=== PATIENT | female | born 1950 | race Caucasian/White ===

== ENCOUNTER → 2017-01-18 | Outpatient (CLI) | payer MEDICARE, OTHER ==
--- NOTE | 2017-01-19 09:54 | MM ---
Reason for exam: screening (asymptomatic). Last mammogram was performed 1 year and 4 months ago. History: Patient is postmenopausal. Took hormonal contraceptives for 1 year beginning at age 20. Took estrogen for 2 years beginning at age 54. Took progesterone for 2 years beginning at age 54. Physical Findings: A clinical breast exam by your physician is recommended on an annual basis and results should be correlated with mammographic findings. MG 3D Screening Mammo W/Cad Bilateral CC and MLO view(s) were taken. Prior study comparison: September 19, 2015, bilateral MG screening mammo w CAD. October 17, 2013, bilateral digital screening mammo w/CAD. There are scattered fibroglandular densities. There is no discrete abnormality. No significant changes when compared with prior studies. ASSESSMENT: Negative, BI-RAD 1 RECOMMENDATION: Routine screening mammogram of both breasts in 1 year.
== END | disposition home or self-care (01) ==
LOC: RADMAMWWP 07:17
PROVIDERS: ATTEND Family Medicine
DX: Z12.31 Encounter for screening mammogram for malignant neoplasm of breast (principal)
CPT/HCPCS: 77063; G0202

== ENCOUNTER 2017-11-02 11:12 | Day surgery (SDC) | payer MEDICARE, OTHER ==
[2017-10-25 14:04] VITALS: BMI 25.7
[~2017-11-02 11:12] MED LIST: LACTATED RINGERS 1,000 ML IV SCH; TIMOLOL 0.5% OPHTH DROPS 5 ML BTL ONE
[2017-11-02] MEDS: CYCLOPENTOLATE 1% OPHTH SOLN 2 ML BTL OP ONE ×3 (12:30→12:46)
[2017-11-02] MEDS: FLURBIPROFEN 0.03% OPHTH DROPS 2.5 ML BTL OP ONE ×3 (12:33→12:49)
[2017-11-02 12:35] VITALS: TEMP 98
[2017-11-02] MEDS: PHENYLEPHRINE 10% OPHTH DROPS 5 ML BTL OP ONE ×3 (12:36→12:51)
[2017-11-02] MEDS ORDERED: LIDOCAINE 1% 20 ML VIAL (10MG/ML) FOR IV START INTRADERMA ONE (12:45)
[2017-11-02] MEDS ORDERED: PROPOFOL 10 MG/ML 20 ML VIAL IV ONE (13:09)
[2017-11-02] MEDS ORDERED: EPINEPHrine (PF) 0.5 ML in BALANCED SALT IRRIG SOLN COMB2 500 ML IRRIGATION ONE (13:16)
[2017-11-02] MEDS ORDERED: BALANCED SALT IRRIG SOLN COMB2 15 ML IRRIG.SOLN INTRAOCULA ONE (13:20)
[2017-11-02] MEDS ORDERED: HYALURONATE SODIUM INTRAOCULAR 1 EACH SYRINGE (10MG/ML) INTRAOCULA ONE ×2 (13:20)
--- NOTE | 2017-11-02 13:38 | P.OP ---
Date of Procedure: 11/02/17 Procedure(s) Performed: PREOPERATIVE DIAGNOSIS: Cataract and Glaucoma, Right eye. POSTOPERATIVE DIAGNOSIS: Cataract and Glaucoma, Right eye. OPERATION: Phacoemulsification cataract, Lens placement, I-stent placement, right eye. DESCRIPTION OF PROCEDURE: The patient was taken to the preoperative holding area. Intravenous Propofol was given so as to bring about adequate sedation. The following mixture was given for local anesthesia: 5 mL of 2% lidocaine, 5 mL of 0.75% Marcaine, and 1 mL of Wydase. Approximately 4 mL was injected in the retrobulbar space of the surgical eye. Additional 1 mL was then directed to the temporal area of the surgical eye. This was performed to allow adequate neurological block of the facial muscles. The patient was revived and then taken into the operative room. The patient was prepped and draped in the usual sterile manner for the operative eye. A lid speculum was put into position. The conjunctiva was resected back from the limbus in the 12 o'clock position. Bleeding was controlled with electrocautery. A #69 blade was then used and a half-thickness scleral incision approximately 1-mm posterior to the limbus was made on bare sclera. This was shelved in the clear cornea using a crescent knife. Next a 15-degree blade was used to make a stab incision at the 3 o' clock position at the corneolimbal interface. Keratome blade was then used and the superior wound was extended into the anterior chamber. Viscoelastic was injected into the anterior chamber and to maintain its form. Using a hand held gonioprism for guidance, an I-stent was placed into the inferior Schlemm's canal. Next, a cystotome was used and a continuous anterior capsulotomy was made without difficulty. Hydrodissection using a blunt cannula and BSS was performed. Phaco probe was then employed and a groove extending from 12 to 6 o' clock in the lens was created. A Michael wand was used through the stab incision so as to perform a divide and conquer technique. Next an irrigation aspiration probe was utilized and any residual cortex was removed from the eye. Again, viscoelastic was injected into the anterior chamber. An German Restor 2.5 posterior chamber lens implant was placed in the cartridge and injected into the anterior chamber without difficulty. The Sinskey hook was utilized to spin the lens into position and this was again performed without any difficulty. The irrigation and aspiration probe was again employed and any residual viscoelastic was removed from the eye. Then BSS was injected into the limbal stab incision and the anterior chamber re-inflated. The conjunctiva was reapproximated using electrocautery. One drop of 0.25% Timoptic was placed over the corneal along with TobraDex ophthalmic ointment. Two sterile patches and a Cochran eye shield were taped into position. The patient was transported to the recovery room in stable condition. Pathology: none sent Condition: stable Disposition: same day
[2017-11-02 13:54] VITALS: BP 128/72; PULSE 71; RESP 18
[2017-11-02] MEDS ORDERED: BUPIVACAINE (PF) 0.75% 5 ML, HYALURONIDASE, HUMAN RECOMB 150 UNIT, LIDOCAINE 2% (PF) 10... MISCELLANE ONE ×3 (23:00)
[2017-11-02] MEDS ORDERED: GENTAMICIN/PREDNISOL AC OPHTH OINT 3.5GM OPHTHALMIC ONE (23:00)
[2017-11-02] MEDS ORDERED: TIMOLOL 0.5% OPHTH DROPS 5 ML BTL OP ONE (23:00)
== END 2017-11-02 14:10 | disposition home or self-care (01) ==
LOC: OR 11:12
PROVIDERS: ATTEND Ophthalmology
DX: H25.11 Age-related nuclear cataract, right eye (principal); H40.9 Unspecified glaucoma; Z79.1 Long term (current) use of non-steroidal anti-inflammatories (NSAID); Z79.899 Other long term (current) drug therapy
CPT/HCPCS: 0191T; 66984

== ENCOUNTER → 2018-01-21 | Outpatient (CLI) | payer MEDICARE, OTHER ==
--- NOTE | 2018-01-25 11:17 | MM ---
Reason for exam: screening (asymptomatic). Last mammogram was performed 1 year ago. History: Patient is postmenopausal. Took hormonal contraceptives for 1 year beginning at age 20. Took estrogen for 2 years beginning at age 54. Took progesterone for 2 years beginning at age 54. Physical Findings: A clinical breast exam by your physician is recommended on an annual basis and results should be correlated with mammographic findings. MG 3D Screening Mammo W/Cad Bilateral CC and MLO view(s) were taken. Prior study comparison: January 18, 2017, bilateral MG 3d screening mammo w/cad. September 19, 2015, bilateral MG screening mammo w CAD. There are scattered fibroglandular densities. There is chronic nodularity in the left breast. No significant changes when compared with prior studies. ASSESSMENT: Negative, BI-RAD 1 RECOMMENDATION: Routine screening mammogram of both breasts in 1 year.
== END | disposition home or self-care (01) ==
LOC: RADMAMWWP 07:25
PROVIDERS: ATTEND Family Medicine
DX: Z12.31 Encounter for screening mammogram for malignant neoplasm of breast (principal)
CPT/HCPCS: 77063; 77067

== ENCOUNTER → 2019-03-31 | Outpatient (CLI) | payer MEDICARE, OTHER ==
--- NOTE | 2019-04-03 10:54 | MM ---
Reason for exam: screening (asymptomatic). Last mammogram was performed 1 year and 2 months ago. History: Patient is postmenopausal. Took hormonal contraceptives for 1 year beginning at age 20. Took estrogen for 2 years beginning at age 54. Took progesterone for 2 years beginning at age 54. Physical Findings: A clinical breast exam by your physician is recommended on an annual basis and results should be correlated with mammographic findings. MG 3D Screening Mammo W/Cad Bilateral CC, MLO, and XCCL view(s) were taken. Prior study comparison: January 21, 2018, bilateral MG 3d screening mammo w/cad. January 18, 2017, bilateral MG 3d screening mammo w/cad. There are scattered fibroglandular densities. There is chronic nodularity bilaterally. No significant changes when compared with prior studies. ASSESSMENT: Benign, BI-RAD 2 RECOMMENDATION: Routine screening mammogram of both breasts in 1 year.
== END | disposition home or self-care (01) ==
LOC: RADMAMWWP 07:50
PROVIDERS: ATTEND Family Medicine
DX: Z12.31 Encounter for screening mammogram for malignant neoplasm of breast (principal)
CPT/HCPCS: 77063; 77067

== ENCOUNTER → 2019-09-15 | Outpatient (CLI) | payer MEDICARE, OTHER ==
--- NOTE | 2019-09-15 09:37 | MR ---
EXAMINATION TYPE: MR shoulder LT wo con DATE OF EXAM: 09/15/2019 COMPARISON: None HISTORY: L shoulder pain Technique: Multiplanar, multiecho imaging on a 3.0 Amy magnet is performed through the shoulder. Long head of the biceps tendon is within the bicipital groove. Fluid surrounds the long head of the b iceps tendon compatible some mild to moderate tendinosis. Minimal joint effusion may be present. Some minimal fluid is in the subdeltoid bursa. Glenoid labrum as visualized on this noncontrast study appears intact. Rotator cuff tendons are evaluated. No tendon or muscle retraction is evident. Muscle signal appears normal without fatty infiltration. No obvious perforation is evident. The acromioclavicular junction has minimal hypertrophy. Significant downward spurring is not apprecia gerald. IMPRESSIONS: 1. Findings suggestive for mild to moderate tendinosis of the long head of the biceps tendon and poss ible mild tendinosis of the supraspinatus tendon.
== END | disposition home or self-care (01) ==
LOC: RADMRIMAIN 08:25
PROVIDERS: ATTEND Orthopaedic Surgery
DX: M25.512 Pain in left shoulder (principal)

== ENCOUNTER → 2020-04-02 | Outpatient (CLI) | payer MEDICARE, OTHER ==
[2020-04-02 09:04] VITALS: BP 112/49; PULSE 72; RESP 18; TEMP 98.2
--- NOTE | 2020-04-02 09:42 | P.HPOB ---
History of Present Illness H&P Date: 04/02/20 Chief Complaint: The patient is here for her routine gynecologic exam and ma mmogram. This is a 69-year-old with an LMP of approximately 2004. The patient is here to establish with this office. She states it is been about 6 years since her last pelvic exam. She previously saw Dr. Hutchins for her gynecologic care. Her is status post vasectomy. She is without gynecologic complaints and denies any postmenopausal bleeding. Review of Systems Weight has been stable. She denies respiratory, cardiac and G.I. problems. She denies maltreatment or problems with falling. : she denies any significant problems with urinary leakage. Past Medical History Past Medical History: No Reported History, Osteoarthritis (OA) Additional Past Medical History / Comment(s): BILATERAL CATARCTS AND GLAUCOMA. 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 History of Any Multi-Drug Resistant Organisms: None Reported Past Surgical History: Back Surgery, Orthopedic Surgery Additional Past Surgical History / Comment(s): arthroscopy rt knee, L eye Cataract. Laminectomy 2009. Past Anesthesia/Blood Transfusion Reactions: No Reported Reaction Past Psychological History: No Psychological Hx Reported Smoking Status: Never smoker Past Alcohol Use History: Occasional (0-1 per month) Past Drug Use History: None Reported Additional History: She is been since 1968 and works for [employer]. - Past Family History Daughter(s) Family Medical History: Cancer Additional Family Medical History / Comment(s): Leukemia. Mother Family Medical History: No Reported History Father Family Medical History: No Reported History Sister(s) Family Medical History: Rheumatoid Arthritis (RA) Medications and Allergies Home Medications Medication Instructions Recorded Confirmed Type Cholecalciferol [Vitamin D3 (25 1,000 unit PO DAILY 04/02/20 04/02/20 History Mcg = 1000 Iu)] Multivitamin [Multivitamins Adult 1 each PO DAILY 04/02/20 04/02/20 History Gummies] Vitamin B Complex 1 each PO DAILY 04/02/20 04/02/20 History Allergies Allergy/AdvReac Type Severity Reaction Status Date / Time No Known Allergies Allergy Verified 04/02/20 09:03 Exam Vital Signs Temp Pulse Resp BP Pulse Ox 04/02/20 09:00 98.2 F 72 18 112/49 100 Intake and Output 06/04/02/20 04/02/20 22:59 06:59 14:59 Other: Weight 61.689 kg Height 5 feet 4-1/2 inches, weight 136 pounds, BMI 23.0. This is a well-developed well-nourished white female who is alert and oriented times 3 in no acute distress. HEENT: Within normal limits. NECK: Supple without mass or thyromegaly. CHEST AND LUNGS: Clear to auscultation. HEART: Regular rate and rhythm. BREASTS: Are without mass or discharge. AXILLARY EXAM: Negative for adenopathy. BACK: Negative for CVA tenderness. ABDOMEN: Soft, nontender, without palpable masses. PELVIC EXAM: Normal external genitalia with mild to moderate atrophy. Cervix and vagina appear normal with mild to moderate atrophy. The cervix is somewhat anterior consistent with her retroverted uterus. There is no unusual discharge. There is no evidence of prolapse. The uterus is retroverted, nongravid size and nontender. There are no palpable adnexal masses or tenderness. RECTAL EXAM: Rectovaginal exam is negative for mass or tenderness and is negative for occult blood. EXTREMITIES: Nontender. IMPRESSION: 1. 69-year-old menopausal female with normal gynecologic exam. 2. Incomplete database regarding Pap smear screening. PLAN: 1. Pap smear was performed. 2. Self breast awareness was discussed with the patient. 3. Screening mammogram was done today. 4. Osteoporosis prevention was discussed. I have stressed the importance of adequate calcium, vitamin D and regular exercise. Recommended amounts of calcium and vitamin D were also discussed. Baseline bone density testing is recommended and she states she has an appointment for this in May. The order slip was given to the patient for this. 5. She does receive her flu shots in the fall. 6. The patient will sign a records release to obtain records from Dr. Hutchins's office regarding her Pap smear testing during the past 10 years. If today's Pap smear is negative and she has had 3 negative Pap smears in the past 10 years, we'll consider discontinuing Pap smear testing. 7. The patient was advised to return in 1-2 years for her well woman examination.
--- NOTE | 2020-04-03 09:58 | MM ---
Reason for exam: screening (asymptomatic). Last mammogram was performed 1 year ago. History: Patient is postmenopausal. Took hormonal contraceptives for 1 year beginning at age 20. Took estrogen for 2 years beginning at age 54. Took progesterone for 2 years beginning at age 54. Physical Findings: A clinical breast exam by your physician is recommended on an annual basis and results should be correlated with mammographic findings. MG 3D Screening Mammo W/Cad Bilateral CC and MLO view(s) were taken. Prior study comparison: March 31, 2019, bilateral MG 3d screening mammo w/cad. January 21, 2018, bilateral MG 3d screening mammo w/cad. There are scattered fibroglandular densities. There is no discrete abnormality. No significant changes when compared with prior studies. ASSESSMENT: Negative, BI-RAD 1 RECOMMENDATION: Routine screening mammogram of both breasts in 1 year.
== END | disposition home or self-care (01) ==
LOC: WWCWWP 08:24
PROVIDERS: ATTEND Obstetrics & Gynecology
DX: Z12.31 Encounter for screening mammogram for malignant neoplasm of breast (principal)
CPT/HCPCS: 77063; 77067

== ENCOUNTER → 2020-05-20 | Outpatient (CLI) | payer MEDICARE, OTHER ==
--- NOTE | 2020-05-20 19:52 | BD ---
EXAMINATION TYPE: Axial Bone Density DATE OF EXAM: 05/20/2020 COMPARISON: NONE CLINICAL HISTORY: 70-year-old female postmenopausal screening Height: 5 FT 4 IN Weight: 135 FRAX RISK QUESTIONS: Alcohol (3 or more units per day): NO Family History (Parent hip fracture): NO Glucocorticoids (More than 3mos): NO (Ex: prednisone, prednisolone, methylprednisolone, dexamethasone, and hydrocortisone). History of Fracture in Adulthood: NO Secondary Osteoporosis: 1. Type 1 Diabetes: NO 2. Hyperthyroidism: NO 3. Menopause before 45: NO 4. Malnutrition: NO 5. Chronic liver disease: NO Rheumatoid Arthritis: NO Current Tobacco Use: NO RISK FACTORS HISTORY OF: Surgery to Spine/Hip(right/left)/Wrist (right/left): SPINE When: 2009 Family History of Osteoporosis: NO Active: YES Postmenopausal woman: LATE 40'S EARLY 50'S Take estrogen and/or progesterone medications: DID TAKE FOR A WHILE NOT SURE HOW LONG MEDICATIONS: Additional Medications: NONE Additional History: EXAM MEASUREMENTS: Bone mineral density about the R hip (g/cm2): 0.684 Bone mineral density about the L hip (g/cm2): 0.658 T Score values are as follows: -----R Neck: -2.5 -----L Neck: -2.7 -----R Total: -2.6 -----L Total: -2.4 BASELINE Bone mineral density about the L Wrist (g/cm2): 0.545 T Score values are as follows: -----Dist. R+U: -2.6 -----Prox. R+U: -2.5 -----Radius total: -2.1 BASELINE IMPRESSION: Osteoporosis (T Score less than -2.5). There is increased fracture risk and therapy is usually indicated based on age. Re-Screen 1-2 years. NOTE: T-SCORE=SD OF THE YOUNG ADULT MEAN.
--- NOTE | 2020-05-21 13:05 | P.PN ---
Progress Note - Text Progress Note Date: 05/21/20 OUTPATIENT FOLLOW-UP NOTE TEST(S)/RESULTS: Bone density test done on 05/20/2020 shows osteoporosis. METHOD OF NOTIFICATION: The patient was notified by phone. PATIENT COMMENTS: Patient states she did have a bone density test done many years ago at Dr. Hutchins's office. She believes it was normal. DIAGNOSIS: Osteoporosis DISCUSSION: We have discussed treatment for this. We have discussed the option of using Fosamax for osteoporosis. We have discussed possible risks including osteonecrosis of the jaw as well as esophageal ulceration if not taken probably. She states she recently had routine blood work done at Dr. Gonzalez's office. She will call their office to see if a creatinine and serum calcium was drawn. If so, she will have this forwarded to our office. If not, she will call so I can order this for her. If these are normal we will plan on starting her on Fosamax. Information on Fosamax and osteoporosis will be sent to the patient. PLAN: as above.
--- NOTE | 2020-05-28 18:23 | P.PN ---
Progress Note - Text Progress Note Date: 05/28/20 OUTPATIENT FOLLOW-UP NOTE TEST(S)/RESULTS: Blood test results from Dr. Gonzalez's office were obtained from 05/17/2020. This included a normal creatinine and normal serum calcium. The creatinine was 0.7 and a calcium was 9.4. METHOD OF NOTIFICATION: The patient was notified by phone. PATIENT COMMENTS: The patient states she reviewed the information on osteoporosis and alendronate. She would like to proceed with taking this medication for her osteoporosis. DIAGNOSIS: Osteoporosis. DISCUSSION: We have again discussed the importance of taking the medication weekly on an empty stomach and she is to drink a full glass of water with the medication. She will also stay upright for the recommended amount of time. She is to read the medication instructions prior to starting the medication. We have discussed osteonecrosis of the jaw risks and the importance of disc ontinuing the medication if she has upcoming jaw or oral surgery. PLAN: Alendronate 70 mg by mouth every week. The electronic prescription will be sent to [facility] pharmacy. We will plan on repeating the bone density test in 2 years. I have stressed the importance of getting adequate calcium, vitamin D and regular exercise. The patient was advised to return in 1-2 years for her well woman examination.
== END | disposition home or self-care (01) ==
LOC: RADBDWWP 07:20
PROVIDERS: ATTEND Obstetrics & Gynecology
DX: M81.8 Other osteoporosis without current pathological fracture (principal)
CPT/HCPCS: 77080

== ENCOUNTER → 2021-05-20 | Outpatient (CLI) | payer MEDICARE ==
[2021-05-20 08:01] VITALS: BP 142/78; PULSE 79; RESP 18; TEMP 98.9
--- NOTE | 2021-05-20 08:31 | P.HPOB ---
History of Present Illness H&P Date: 05/20/21 Chief Complaint: The patient is here for her routine gynecologic exam and ma mmogram. This is a 71-year-old with an LMP of 2004. The patient is without gynecologic complaints and denies any postmenopausal bleeding. Review of Systems The patient has gained 7 pounds over the last year. She denies respiratory, cardiac, or G.I. problems. Past Medical History Past Medical History: No Reported History, Osteoarthritis (OA) Additional Past Medical History / Comment(s): BILATERAL CATARCTS AND GLAUCOMA. 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 History of Any Multi-Drug Resistant Organisms: None Reported Past Surgical History: Back Surgery, Orthopedic Surgery Additional Past Surgical History / Comment(s): arthroscopy rt knee, L eye Cataract. Laminectomy 2009. Past Anesthesia/Blood Transfusion Reactions: No Reported Reaction Past Psychological History: No Psychological Hx Reported Smoking Status: Never smoker Past Alcohol Use History: Occasional (1-2 per month) Additional Past Alcohol Use History / Comment(s): smoked for a year back as a teen Additional Drug Use History / Comment(s): CBD edibles on occasion. - Past Family History Daughter(s) Family Medical History: Cancer Additional Family Medical History / Comment(s): Leukemia. Mother Family Medical History: No Reported History Father Family Medical History: No Reported History Sister(s) Family Medical History: Rheumatoid Arthritis (RA) Medications and Allergies Home Medications Medication Instructions Recorded Confirmed Type Cholecalciferol [Vitamin D3 (25 1,000 unit PO DAILY 04/02/20 05/20/21 History Mcg = 1000 Iu)] Vitamin B Complex 1 each PO DAILY 04/02/20 05/20/21 History Alendronate Sodium 70 mg PO WEEKLY #12 tab 05/28/20 05/20/21 Rx Allergies Allergy/AdvReac Type Severity Reaction Status Date / Time No Known Allergies Allergy Verified 05/20/21 07:54 Exam Vital Signs Temp Pulse Resp BP Pulse Ox 05/20/21 07:54 98.9 F 79 18 142/78 100 Intake and Output 05/19/21 05/20/21 05/20/21 22:59 06:59 14:59 Other: Weight 64.864 kg Height 5 feet 4 inches, weight 143 pounds, BMI 24.5. This is a well-developed well-nourished white female who is alert and oriented times 3 in no acute distress. HEENT: Within normal limits. NECK: Supple without mass or thyromegaly. CHEST AND LUNGS: Clear to auscultation. HEART: Regular rate and rhythm. BREASTS: Are without mass or discharge. AXILLARY EXAM: Negative for adenopathy. BACK: Negative for CVA tenderness. ABDOMEN: Soft, nontender, without palpable masses. PELVIC EXAM: Normal external genitalia with mild atrophy. Cervix and vagina appear normal with mild atrophy. There is no unusual discharge. There is no evidence of prolapse. The uterus is midposition, nongravid size and nontender. There are no palpable adnexal masses or tenderness. RECTAL EXAM: Rectovaginal exam is negative for mass or tenderness and is negative for occult blood. EXTREMITIES: Nontender. IMPRESSION: 1. 71-year-old menopausal female with normal gynecologic exam. 2. Adequate cervical screening in the past with no history of cervical neoplasia. 3. History of osteoporosis. She has been on alendronate for about 1 year. PLAN: 1. Pap smears have been discontinued. 2. Self breast awareness was discussed with the patient. We have reviewed the symptoms associated with inflammatory breast cancer. 3. Screening mammogram will be done today. 4. Osteoporosis management was discussed. I have stressed the importance of adequate calcium, vitamin D and regular exercise. Recommended amounts of calcium and vitamin D were also discussed. She will continue alendronate 70 mg by mouth every week. The electronic prescription will be sent to [facility] pharmacy. We will plan on repeating bone density testing in 1 year. 5. The patient was advised to return in 1-2 years for her well woman examination. If she does not return here next year, she is to have her breast exam, mammogram and alendronate prescription filled by her primary care doctor.
--- NOTE | 2021-05-21 10:24 | MM ---
Reason for exam: screening (asymptomatic). Last mammogram was performed 1 year and 2 months ago. History: Patient is postmenopausal. Took hormonal contraceptives for 1 year beginning at age 20. Took estrogen for 2 years beginning at age 54. Took progesterone for 2 years beginning at age 54. Physical Findings: A clinical breast exam by your physician is recommended on an annual basis and results should be correlated with mammographic findings. MG 3D Screening Mammo W/Cad Bilateral CC and MLO view(s) were taken. Prior study comparison: April 02, 2020, bilateral MG 3d screening mammo w/cad. March 31, 2019, bilateral MG 3d screening mammo w/cad. There are scattered fibroglandular densities. There is no discrete abnormality. No significant changes when compared with prior studies. ASSESSMENT: Benign, BI-RAD 2 RECOMMENDATION: Routine screening mammogram of both breasts in 1 year.
== END | disposition home or self-care (01) ==
LOC: WWCWWP 07:47
PROVIDERS: ATTEND Obstetrics & Gynecology
DX: Z12.31 Encounter for screening mammogram for malignant neoplasm of breast (principal)
CPT/HCPCS: 77063; 77067

== ENCOUNTER → 2022-05-19 | Outpatient (CLI) | payer MEDICARE ==
[2022-05-19 08:31] VITALS: BP 152/79; RESP 16; TEMP 97.9
--- NOTE | 2022-05-19 09:22 | P.PN ---
Progress Note - Text Progress Note Date: 05/19/22 Chief Complaint: Heaviness in the vagina greater during the past week. HPI: This is a 72-year-old with an LMP of 2004. The patient has been experiencing some vaginal heaviness with some urinary frequency. She thinks this has been going on for up to a year, but it has not caused much problem for her. She recently was treated for a suspected urinary tract infection because of her urinary frequency, but the urine testing was negative for infection. At times it feels like a tampon is coming out of her vagina and when she looked down and the genital area, she thought it looked like a head was . She notices these sensations less morning and more in the afternoon. ROS: She has gained about 3 pounds over the past year. She denies respiratory, cardiac, or GI problems. : She denies dysuria but has had occasional urinary frequency. Please see the HPI. PE: Blood pressure: 152/79, Height: 5 feet 4 inches, Weight: 146 pounds, Temperature: 97.9, Pulse: 66. Pulse oximeter 99%. This is a well developed, well nourished, white female who is alert and orientedx3, in no acute distress. Abdomen: Soft, nontender, without palpable masses. The abdomen is nondistended. Pelvic exam: Normal external genitalia with mild atrophy. Cervix appears normal with minimal uterine prolapse. There is a grade 1-2 cystocele and grade 1-2 rectocele at rest. With Valsalva the cystocele and rectocele become a grade 2-3 prolapse. The vaginal mucosa appears normal with mild atrophy. There is no thickening, inflammation, or ulceration noted. The uterus is atrophic and nontender. There are no palpable adnexal masses or tenderness. Rectovaginal exam: Is negative for mass or tenderness and does confirm a small rectocele. There is no evidence of enterocele. Impression: 1. 72-year-old menopausal female with grade 2 rectocele and grade 2 cystocele which is mildly symptomatic. With hard Valsalva the rectocele and cystocele approach the introitus. Plan: 1. We have had a long discussion regarding the pelvic prolapse and grade 2 rectocele and grade 2 cystocele. We have discussed various options including conservative management, pessary use, and surgical correction. 2. We have discussed negative Valsalva exercises and kegal exercises. Instru ctions on the Valsalva exercises were given. I have recommended she try this with sets of 5 as needed. She can do these exercises when she is feeling vaginal heaviness and prior to voiding. 3. She will call if she is having worsening of symptoms or if she would like to proceed with either pessary use or surgical correction. 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 4. Information on pelvic prolapse was given to the patient. 5. She will return within the next 2 months for reevaluation and annual well woman examination. Time spent with the patient: 25 minutes
== END ==
LOC: WWCWWP 08:13
PROVIDERS: ATTEND Obstetrics & Gynecology
DX: N81.6 Rectocele (principal); N81.10 Cystocele, unspecified; Z78.0 Asymptomatic menopausal state

== ENCOUNTER → 2022-07-02 | Outpatient (CLI) | payer MEDICARE ==
--- NOTE | 2022-07-03 08:35 | MM ---
Reason for Exam: Screening (asymptomatic). Last mammogram was performed 1 year(s) and 1 month(s) ago. Patient History: Menarche at age 13. First Full-Term at age 21. Postmenopausal. Estrogen, starting at age 54 for 2 years. Progesterone, starting at age 54 for 2 years. Hormonal Contraceptives, starting at age 20 for 1 year. Risk Values: Olga 5 year model risk: 1.6%. NCI Lifetime model risk: 4.1%. Prior Study Comparison: 03/31/2019 Bilateral Screening Mammogram, [facility]. 04/02/2020 Bilateral Screening Mammogram, [facility]. 05/20/2021 Bilateral Screening Mammogram, [facility]. Tissue Density: There are scattered fibroglandular densities. Findings: Analyzed By CAD. There is no suspicious group of microcalcifications or new suspicious mass in either breast. Overall Assessment: Negative, BI-RAD 1 Management: Screening Mammogram of both breasts in 1 year. A clinical breast exam by your physician is recommended on an annual basis and results should be correlated with mammographic findings. Electronically signed and approved by: Luis Manuel Hatfield M.D.
== END | disposition home or self-care (01) ==
LOC: RADMAMWWP 08:02
PROVIDERS: ATTEND Obstetrics & Gynecology
DX: Z12.31 Encounter for screening mammogram for malignant neoplasm of breast (principal); Z78.0 Asymptomatic menopausal state
CPT/HCPCS: 77063; 77067

== ENCOUNTER → 2022-07-04 | Outpatient (CLI) | payer MEDICARE ==
[2022-07-04 11:27] LABS: Basophils # (A) 0.02 X 10*3/uL (0.00-0.10); Basophils % (A) 0.5 %; Eosinophils # (A) 0.07 X 10*3/uL (0.04-0.35); Eosinophils % (A) 1.6 %; HCT 36.9 % (37.2-46.3); HGB 12.4 g/dL (12.0-15.0); Immature Grans, Automated 0.2 %; Lymphocytes # (A) 0.84 X 10*3/uL (0.90-5.00); Lymphocytes % (A) 19.1 %; MCH 32.4 pg (27.0-32.0); MCHC 33.6 g/dL (32.0-37.0); MCV 96.3 fL (80.0-97.0); Mean Platelet Volume 9.8 fL (9.5-12.2); Monocytes # (A) 0.41 X 10*3/uL (0.20-1.00); Monocytes % (A) 9.3 %; NRBC Per 100 WBC 0 /100 WBCS (0.0-0.0); Neutrophils # (A) 3.05 X 10*3/uL (1.80-7.70); Neutrophils % (A) 69.3 %; Platelet Count 181 X 10*3/uL (140-440); RBC 3.83 X 10*6/uL (4.10-5.20); RDW 12.8 % (11.5-14.5)
[2022-07-04 11:44] LABS: Anion Gap 8.2 mmol/L (10.00-18.00); Blood Urea Nitrogen 13.6 mg/dL (9.0-27.0); Carbon Dioxide 27.8 mmol/L (20.0-27.5); Non-African American GFR(CKD) 63.9 (60.0-200.0)
== END | disposition home or self-care (01) ==
LOC: LABPAT 08:28
PROVIDERS: ATTEND Obstetrics & Gynecology
DX: Z01.812 Encounter for preprocedural laboratory examination (principal); N81.11 Cystocele, midline; N81.6 Rectocele
CPT/HCPCS: 80051; 82565; 84520; 85025; 87086; 93005

== ENCOUNTER → 2024-09-08 | Outpatient (CLI) | payer MEDICARE, OTHER ==
--- NOTE | 2024-09-09 20:25 | MR ---
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 Hx surgery. TECHNIQUE: Multiplanar, multisequence images of the lumbar spine were acquired without IV contrast. FINDINGS: Vertebral body heights are preserved. Conus medullaris is normal. Mild heterogeneous marrow signal compatible with patchy red marrow hyperplasia. In addition, there is edematous Modic type I endplate change at both L5-S1 and to a lesser degree at T11-T12. Mild multilevel degenerative disc disease, more mild to moderate in the lower lumbar spine. There is intervertebral disc desiccation, variable mild disc space narrowing, and disc bulging. Scattered ligamentum flavum thickening in the mid lumbar spine with hypertrophic facet arthropathy gr eatest in the mid and lower lumbar spine. Bulging disks at multiple levels impress on the ventral thecal sac but do not cause any significant s viktor canal stenosis. Degenerative trace grade 1 retrolisthesis L1-L2. On the right, changes result in moderate neural foraminal stenoses at L4-L5 and L5-S1. On the left, changes result in moderate neural foraminal stenosis at L3-L4 and L5-S1. Mild at L4-L5. No prevertebral or paravertebral soft tissue abnormality seen. IMPRESSION: 1. [id number] multilevel degenerative disc disease. Some associated edematous Modic type I endp late change at L5-S1 and also T11-T12. 2. Moderate to advanced hypertrophic facet arthropathy especially mid to lower lumbar spine. Some lig amentum flavum thickening in the mid lumbar spine. 3. Degenerative trace grade 1 retrolisthesis L1-L2. 4. No large focal disc herniation or significant spinal canal stenosis. 5. Variable neural foraminal stenoses as outlined above, moderate on both sides at L5-S1 and on the l eft at L3-L4. [facility], , 09/09/2024 8:23 PM
== END | disposition home or self-care (01) ==
LOC: RADMRIMAIN 12:52
PROVIDERS: ATTEND Family Medicine
DX: M43.16 Spondylolisthesis, lumbar region (principal); M47.26 Other spondylosis with radiculopathy, lumbar region; M48.061 Spinal stenosis, lumbar region without neurogenic claudication; M51.16 Intervertebral disc disorders with radiculopathy, lumbar region
CPT/HCPCS: 72148

== ENCOUNTER → 2024-09-20 | Outpatient (CLI) | payer MEDICARE, OTHER ==
--- NOTE | 2024-09-21 08:43 | MM ---
Reason for Exam: Screening (asymptomatic). Last mammogram was performed 1 year(s) and 2 month(s) ago. Patient History: Menarche at age 13. First Full-Term at age 21. Hysterectomy at age 72. Postmenopausal. Patient has history of breast feeding. Estrogen, starting at age 54 for 2 years. Progesterone, starting at age 54 for 2 years. Hormonal Contraceptives, starting at age 20 for 1 year. Risk Values: Olga 5 year model risk: 1.6%. NCI Lifetime model risk: 3.7%. Prior Study Comparison: 05/20/2021 Bilateral Screening Mammogram, [facility]. 07/02/2022 Bilateral MG 3D screening mammo w/cad, [facility]. 07/20/2023 Bilateral MG 3D screening mammo w/cad, [facility]. Tissue Density: The breasts are almost entirely fatty. Findings: Analyzed By CAD. There is no suspicious group of microcalcifications or new suspicious mass in either breast. Overall Assessment: Negative, BI-RAD 1 Management: Screening Mammogram of both breasts in 1 year. . Patient should continue monthly self-breast exams. A clinical breast exam by your physician is recommended on an annual basis. This exam should not preclude additional follow-up of suspicious palpable abnormalities. Note on Olga scores and lifetime risk: 1. A Olga score greater than 3% is considered moderate risk. If this is the case, consider specialist referral to assess eligibility for a risk reducing agent. 2. If overall lifetime risk for the development of breast cancer is 20% or higher, the patient may qualify for future screening with alternating mammogram and breast MRI. [facility], , 09/21/2024 8:40 AM. Electronically signed and approved by: Marciano Hernandez M.D. Radiologis
== END | disposition home or self-care (01) ==
LOC: RADMAMWWP 12:30
PROVIDERS: ATTEND Family Medicine
DX: Z12.31 Encounter for screening mammogram for malignant neoplasm of breast (principal); Z78.0 Asymptomatic menopausal state; R92.313 Mammographic fatty tissue density, bilateral breasts
CPT/HCPCS: 77063; 77067

== ENCOUNTER → 2025-01-09 | Outpatient (CLI) | payer MEDICARE ==
[2025-01-09 09:29] VITALS: BP 153/77; PULSE 85; RESP 16; TEMP 96.9
--- NOTE | 2025-01-09 10:18 | P.HPOB ---
History of Present Illness H&P Date: 01/09/25 Chief Complaint: The patient is here for her routine gynecologic exam. This is a 74-year-old with an LMP of 2004. She is status post vaginal hysterectomy with anterior and posterior repairs in 2021, for benign reasons. She is without gynecologic complaints. She states she has noticed a right groin mole for more than 2 years. She states more recently, it feels slightly rough. Review of Systems The patient has gained 8 pounds over the last year. She denies respiratory, cardiac, or G.I. problems. Past Medical History Past Medical History: Osteoarthritis (OA) Additional Past Medical History / Comment(s): BILATERAL CATARCTS AND GLAUCOMA. Osteoporosis. 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 History of Any Multi-Drug Resistant Organisms: None Reported Past Surgical History: Back Surgery, Hysterectomy, Orthopedic Surgery Additional Past Surgical History / Comment(s): arthroscopy rt knee, L eye Cataract. Laminectomy 2009. Vaginal hysterectomy with anterior and posterior repairs 2021. Past Anesthesia/Blood Transfusion Reactions: No Reported Reaction Past Psychological History: No Psychological Hx Reported Smoking Status: Never smoker Past Alcohol Use History: Occasional ( 12 drinks per year.) Additional Past Alcohol Use History / Comment(s): smoked for a year back as a teen Past Drug Use History: None Reported Additional Drug Use History / Comment(s): CBD edibles on occasion. Additional History: She is retired and is . Her has Parkinson's disease. She is not sexually active. - Past Family History Daughter(s) Family Medical History: Cancer Additional Family Medical History / Comment(s): Leukemia. Mother Family Medical History: No Reported History Father Family Medical History: No Reported History Sister(s) Family Medical History: Rheumatoid Arthritis (RA) Medications and Allergies Home Medications Medication Instructions Recorded Confirmed Type Cholecalciferol [Vitamin D3 (25 1,000 unit PO DAILY 04/02/20 01/09/25 History Mcg = 1000 Iu)] Vitamin B Complex 1 each PO DAILY 04/02/20 01/09/25 History diphenhydrAMINE [Benadryl] 25 mg PO HS PRN 07/09/22 01/09/25 History Alendronate Sodium 70 mg PO WEEKLY #12 tab 07/20/23 01/09/25 Rx hydroCHLOROthiazide 12.5 mg PO WEEKLY 07/20/23 01/09/25 History Allergies Allergy/AdvReac Type Severity Reaction Status Date / Time No Known Allergies Allergy Verified 01/09/25 09:26 Exam Vital Signs Temp Pulse Resp BP Pulse Ox 01/09/25 09:26 96.9 F L 85 16 153/77 97 Intake and Output 01/08/25 01/09/25 01/09/25 22:59 06:59 14:59 Other: Weight 72.121 kg Height 5 feet 4 inches, weight 159 pounds, BMI 27.3. This is a well-developed well-nourished white female who is alert and oriented times 3 in no acute distress. HEENT: Within normal limits. NECK: Supple without mass or thyromegaly. CHEST AND LUNGS: Clear to auscultation. HEART: Regular rate and rhythm. BREASTS: Are without mass or discharge. AXILLARY EXAM: Negative for adenopathy. BACK: Negative for CVA tenderness. ABDOMEN: Soft, nontender, without palpable masses. PELVIC EXAM: External genitalia appears normal with mild atrophy. There is a right groin mole near the crease measuring 4 x 7 mm. This is benign appearing and has smooth borders. Vagina appears normal with mild atrophy. There is no evidence of prolapse. Bimanual examination is negative for mass or tenderness. RECTAL EXAM: Rectovaginal exam is negative for mass or tenderness and is negative for occult blood. EXTREMITIES: Nontender. IMPRESSION: 1. 74-year-old menopausal female status post vaginal hysterectomy with A&P repairs for benign reasons, with normal gynecologic exam. 2. Benign appearing right groin mole measuring approximately 7 x 4 mm. PLAN: 1. Pap smears have been discontinued. 2. Self breast awareness was discussed with the patient. We have also discussed symptoms associated with inflammatory breast cancer. 3. Screening mammogram will be due in September 2025. The order slip was given to the patient for this. 4. Osteoporosis management was discussed. I have stressed the importance of adequate calcium, vitamin D and regular exercise. Recommended amounts of calcium and vitamin D were also discussed. We will plan on repeating the bone density test at the same time of her mammogram in September 2025. The order slip was given to the patient for this. She will continue alendronate weekly. She has been on it for a total of about 3 years. Will plan on completing about 5 years use. The electronic prescription will be sent to [facility] pharmacy in [place]. 5. I have advised her to inspect the right groin mole about monthly. She was instructed to call if she is noticing changes. She will return in 1 year for reexamination and as needed. 6. She was advised to return in one year for her annual well woman exam.
== END ==
LOC: WWCWWP 09:03
PROVIDERS: ATTEND Obstetrics & Gynecology
DX: Z01.419 Encounter for gynecological examination (general) (routine) without abnormal findings (principal); D22.5 Melanocytic nevi of trunk